=== PATIENT | male | born 1995 | race Two or more races ===

== ENCOUNTER 2020-04-23 16:25 | Outpatient (RCR) | payer MEDICAID, SELFPAY ==
--- NOTE | 2020-05-26 16:29 | MHC.PT.DC ---
[facility] [place] [facility] [place] [facility] [place] [facility] [address] Elan Dewey [address] [phone] F: [phone] F: [phone] F: [phone] F: [phone] Physical Therapy Discharge Report Diagnosis: L foot pain Date of Surgery: NA Date of Evaluation: 04/08/20 Date of Discharge: 05/26/20 Treatments to Date: 4 Cancellations to Date: 3 No Shows to Date: 3 Discharge Status: Visit Non-compliance Discharge Summary: 05/26/20- Pt has had 3 no shows and 3 cancels. Attempted to call pt however pt did not return calls. Pt therefore d/c from therapy for non- compliance Electronically signed by: Kerrie Hernandez DPT Please sign and return to therapist. Thank you for your referral.
== END 2020-05-26 16:30 | disposition other institution (70) ==
LOC: HO.PT 16:25
PROVIDERS: PCP Internal Medicine; Visit Provider Physician Assistant
DX: M79.672 Pain in left foot (principal)
CPT/HCPCS: 97110; 97530